=== PATIENT | male | born 1985 | race African-American/Black ===

== ENCOUNTER 2016-07-15 07:30 | Day surgery (SDC) | payer OTHER ==
[~2016-07-15] VITALS: Ht 177.8 cm; Wt 82.4 kg
[2016-07-15 08:41] VITALS: BP 129/75; PULSE 58; TEMP 98
[2016-07-15 10:25] VITALS: BP 100/81; PULSE 92; TEMP 99.4
[2016-07-15 10:40] VITALS: BP 117/64; PULSE 79
[2016-07-15 10:55] VITALS: BP 119/56; PULSE 82
== END 2016-07-15 11:35 | disposition home or self-care (01) ==
LOC: SDCO 07:30
DX: R05 Cough (principal); R59.9 Enlarged lymph nodes, unspecified; R91.8 Other nonspecific abnormal finding of lung field
CPT/HCPCS: J2704; J7120

== ENCOUNTER → 2016-07-30 | Outpatient (CLI) | payer OTHER | LOC: COL.CARD 12:10 | DX: D86.9 Sarcoidosis, unspecified (principal); I31.3 Pericardial effusion (noninflammatory); R06.02 Shortness of breath; R07.9 Chest pain, unspecified ==